=== PATIENT | male | born 1955 | race Caucasian/White ===

== ENCOUNTER 2016-08-11 14:19 | Emergency (ER) | payer OTHER ==
[~2016-08-11] VITALS: Ht 182.9 cm; Wt 95.0 kg
[~2016-08-11 14:19] MED LIST: ASPI81 PO; TAB-TAB PO; TICA90 PO
[2016-08-11 14:21] VITALS: BP 136/78; PULSE 99; RESP 16; TEMP 98.2; O2SAT 97
--- NOTE | 2016-08-11 14:53 | PD ---
HPI Chief Complaint: Pain: Acute or Chronic Time Seen by Provider: 14:52 Travel History International Travel<30 days: No Contact w/Intl Traveler<30days: No Traveled to known affect area: No History of Present Illness HPI 61-year-old right-hand dominant male with PMH of CAD, OA on blood thinners presents to the ED for evaluation of right elbow pain and swelling. Patient states that he woke up this morning noticed tightness of his elbow with range of motion. He denies any known trauma or overuse injury. He denies numbness, tingling, limitations to range of motion or weakness of the extremity. Patient states that he is on a strict diet, rarely eats meat or drink alcohol. He denies history of gout. PFSH Past Medical History Arthritis: Yes (HIPS AND KNEES) Heart Rhythm Problems: No Cancer: No Cardiac Catheterization: Yes Cardiovascular Problems: Yes (CAD ; TRIPLE HEART BY-PASS 2008; INSERTION CARDIAC STENT) High Cholesterol: Yes Chest Pain: Yes (THIS VISIT) Congestive Heart Failure: No Coronary Artery Disease: Yes Diabetes: No Diminished Hearing: No Endocrine: No GERD: Yes Glaucoma: No Genitourinary: No Hepatitis: No Hiatal Hernia: No Hypertension: No Immune Disorder: No Musculoskeletal: Yes (ARTHRITIS HIPS & KNEES) Neurologic: No Psychiatric: No Reproductive: No Respiratory: No Immunizations Current: Yes Thyroid Disease: No Past Surgical History Abdominal Surgery: Yes (RUPTURED MUSCLE 1969') Body Medical Devices: PLATE AND 6 SCREWS NECK; 1 CARDIAC STENT Cardiac Surgery: Yes (TRIPLE HEART BY-PASS 2008-INSERTION CARDIAC STENT) Coronary Artery Bypass Graft: Yes Coronary Stent: Yes Ear Surgery: No Endocrine Surgery: No Eye Surgery: Yes (LASIK BOTH EYES) Genitourinary Surgery: No Gynecologic Surgery: No Joint Replacement: Yes (ROSARIO KNEE) Oral Surgery: No Pacemaker: No Thoracic Surgery: Yes Other Surgery: Yes Social History Alcohol Use: Yes (WINE ON WEEKENDS) Tobacco Use: Yes (NONE FOR PAST 6 MONTHS) Substance Use: No Allergies-Medications (Allergen,Severity, Reaction): Coded Allergies: Percocet (Verified Allergy, Unknown, 08/11/16) Percodan (Verified Allergy, Unknown, 08/11/16) Reported Meds & Prescriptions Reported Meds & Active Scripts Active Clindamycin (Clindamycin HCl) 150 Mg Cap 450 Mg PO Q6H 10 Days Brilinta 90 Mg Tab (Ticagrelor) 90 Mg Tab 90 Mg PO BID 30 Days Reported Multivitamin (Multivitamins) 1 Tab Tab 1 Tab PO DAILY Aspirin 81 Mg Tab 81 Mg PO DAILY Review of Systems Except as stated in HPI: all other systems reviewed are Neg Physical Exam Narrative GENERAL: Well-nourished, well-developed white male in no acute distress. SKIN: Warm and dry. There is a 4 cm warm, tender erythematous, fluctuant mass on the olecranon process of the right elbow. HEAD: Normocephalic. EYES: No scleral icterus. No injection or drainage. NECK: Supple, trachea midline. No JVD or lymphadenopathy. CARDIOVASCULAR: Regular rate and rhythm without murmurs, gallops, or rubs. 2+ DP and radial pulses bilaterally. RESPIRATORY: Breath sounds equal bilaterally. No accessory muscle use. GASTROINTESTINAL: Abdomen soft, non-tender, nondistended. MUSCULOSKELETAL: No cyanosis, or edema. FOCUSED RIGHT UPPER EXTREMITY EXAM: Strong building surveyor strength. Patient maintains full, active ROM of the right elbow. No worsening of the pain with full extension. Sensation intact to light touch distally. Cap refill less than 2 seconds. BACK: Nontender without obvious deformity. No CVA tenderness. Data Data Last Documented VS Vital Signs Date Time Temp Pulse Resp B/P Pulse Ox O2 Delivery O2 Flow Rate FiO2 08/11/16 14:21 98.2 99 16 136/78 97 Orders Clindamycin Inj (Cleocin Inj) (08/11/16 15:30) MDM Medical Decision Making Medical Screen Exam Complete: Yes Emergency Medical Condition: Yes Differential Diagnosis Olecranon bursitis versus cellulitis versus gout versus pseudogout versus monarthritis versus hemo-bursa versus joint effusion versus septic arthritis versus other Narrative Course 61-year-old right-hand dominant male with PMH of CAD, OA on blood thinners presents to the ED for evaluation of right elbow pain and swelling. Patient states that he woke up this morning noticed tightness of his elbow with range of motion. He denies any known trauma or overuse injury. He denies numbness, tingling, limitations to range of motion or weakness of the extremity. No history of gout. Vitals reviewed. Physical exam reveals a nontoxic-appearing white male in no acute distress. There is a 4 cm warm, tender erythematous, fluctuant mass on the olecranon process of the right elbow. Strong building surveyor strength. Patient maintains full, active ROM of the right elbow. No worsening of the pain with full extension. Sensation intact to light touch distally. Cap refill less than 2 seconds. I suspect this may be an infected bursitis. Low suspicion for septic arthritis as the pain is not worse with extension of the arm. Patient was administered IM clindamycin in the ED. He was provided prescription 150 mg clindamycin 4 times a day 10 days. He is instructed to return to the ED for reevaluation of the elbow in 48 hours, sooner if symptoms worsen. I provided the name of the on-call orthopedist for outpatient follow- up next week. He indicated understanding of the instructions, is amenable to the plan of care. He is stable and discharged home. Diagnosis Primary Impression: Olecranon bursitis, right elbow Additional Impression: Cellulitis of right elbow Referrals: Alan Rios MD Patient Instructions: Cellulitis (ED), Elbow Bursitis (ED), General Instructions Additional Instructions: Return to the ED for reevaluation of the elbow in 48 hours. Take all antibiotics as prescribed, even if symptoms resolve. Follow-up with Dr. Rios, orthopedist, on Sunday. Return to the ED for any urgent or emergent medical condition. Med/Other Pt SpecificInfo: Prescription(s) given Scripts Clindamycin 150 Mg [id number] Mg PO Q6H 10 Days Ref 0 Prov:Iliana Villanueva DO 08/11/16 Disposition: 01 DISCHARGE HOME Condition: Stable Merari Crandall Aug 11, 2016 14:53
[2016-08-11] MEDS ORDERED: CLIN1CAP5 PO (15:22)
[2016-08-11] MEDS ORDERED: CLINDAMYCIN PHOS 600 MG/4 ML VIAL IM ONE (15:30)
== END 2016-08-11 16:26 | disposition home or self-care (01) ==
LOC: NEPB 14:19
DX: M70.21 Olecranon bursitis, right elbow (principal); L03.113 Cellulitis of right upper limb; Y93.9 Activity, unspecified; F10.10 Alcohol abuse, uncomplicated; Z87.891 Personal history of nicotine dependence; Z95.1 Presence of aortocoronary bypass graft
CPT/HCPCS: 96372